=== PATIENT | female | born 1995 | race African-American/Black ===

== ENCOUNTER 2019-05-06 13:44 | Emergency (ER) | payer SELFPAY ==
[~2019-05-06] VITALS: Ht 160 cm; Wt 68.2 kg
[2019-05-06 14:50] VITALS: BP 123/95
[2019-05-06] MEDS ORDERED: AZITHROMYCIN 250 MG TABLET PO ONE (15:45)
[2019-05-06] MEDS ORDERED: LIDOCAINE/PF 1% 2 ML VIAL IM ONE (15:45)
[2019-05-06] MEDS ORDERED: CefTRIAXone SODIUM 1 GM/VIAL IM ONE (15:45)
[2019-05-06] MEDS ORDERED: IBUPROFEN 600 MG TABLET PO ONE (15:45)
== END 2019-05-06 15:55 | disposition home or self-care (01) ==
LOC: EMS 13:46
DX: M54.6 Pain in thoracic spine (principal); I10 Essential (primary) hypertension; F12.90 Cannabis use, unspecified, uncomplicated; Z20.2 Contact with and (suspected) exposure to infections with a predominantly sexual mode of transmission
CPT/HCPCS: 81002; 81025; 96372; 99283; J0696; J3490